=== PATIENT | male | born 1990 | race Caucasian/White ===

== ENCOUNTER 2023-04-10 14:32 | Emergency (ER) | payer MEDICAID, OTHER ==
[~2023-04-10] VITALS: Ht 165.1 cm; Wt 80.6 kg
[~2023-04-10 14:32] MED LIST: DIPH-423 PO; EPIN0.3P3 IM; RANI-648 PO
[2023-04-10] MEDS ORDERED: dexamethasone sod phosphate 10mg/ml inj IM STA (15:00)
[2023-04-10] MEDS ORDERED: PRED10TA23 PO (15:04)
[2023-04-10 15:46] VITALS: BP 147/90
== END 2023-04-10 15:59 | disposition home or self-care (01) ==
LOC: ER 14:33
DX: L23.7 Allergic contact dermatitis due to plants, except food (principal); F12.90 Cannabis use, unspecified, uncomplicated
CPT/HCPCS: 96372; 99283; J1100